=== PATIENT | male | born 1995 | race American Indian/Alaskan Native ===

== ENCOUNTER 2021-07-11 12:48 | Emergency (ER) | payer BC ==
[2021-07-11 13:48] LABS: Bilirubin Negative (Negative); Blood, Urine Negative (Negative); Clarity Clear (Clear); Glucose, Urine (Dipstick) Normal (Negative); Ketone, Urine Negative (Negative); Leukocyte Negative Leu/uL (Negative); Nitrite Negative (Negative); Protein, Urine (Dipstick) Negative (Neg-Trace); Specific Gravity, Urine 1.023 (1.002-1.036); Urobilinogen Normal mg/dL (Less than 2)
== END 2021-07-11 14:19 | disposition home or self-care (01) ==
LOC: ERS 12:48
DX: N47.2 Paraphimosis (principal)
CPT/HCPCS: 81003; 87086; 99283